=== PATIENT | female | born 2000 | race Two or more races ===

== ENCOUNTER → 2021-12-24 | Outpatient (CLI) | payer MEDICAID ==
[2021-12-24 12:20] LABS: Basophils # (auto) 0 10 ^3/uL (0-0.2); Basophils % (auto) 0.2 % (0.0-2.0); Eosinophils # (auto) 0.1 10 ^3/uL (0-0.8); Hematocrit 33.6 % (36.0-46.0); Hemoglobin 11.6 g/dL (12.2-16.2); Lymphocytes # (auto) 2.3 10 ^3/uL (0.4-5.4); Lymphocytes % (auto) 24.5 % (10.0-50.0); Mean Corpuscular Hemoglobin 30.6 pg (28.0-32.0); Mean Corpuscular Hgb Conc. 34.5 g/dL (32.0-36.0); Mean Corpuscular Volume 88.8 fL (80.0-100.0); Monocytes # (auto) 0.3 10 ^3/uL (0-1.3); Monocytes % (auto) 3.3 % (0.0-12.0); Neutrophils # (auto) 6.7 10 ^3/uL (1.6-8.6); Red Blood Cells 3.78 10^6/uL (4.0-5.20); Red Cell Distribution Width 13.4 % (11.8-14.3); White Blood Cell 9.4 10^3/uL (4.4-10.8)
[2021-12-25 08:06] LABS: RPR Non Reactive (Non Reactive)
== END | disposition home or self-care (01) ==
LOC: LAB 10:37
PROVIDERS: ATTEND Obstetrics & Gynecology
DX: Z34.00 Encounter for supervision of normal first pregnancy, unspecified trimester (principal); Z31.430 Encounter of female for testing for genetic disease carrier status for procreative management; Z36.0 Encounter for antenatal screening for chromosomal anomalies; N39.0 Urinary tract infection, site not specified; Z3A.00 Weeks of gestation of pregnancy not specified
CPT/HCPCS: 36415; 83036; 84112; 84702; 85025; 86592; 86703; 86762; 86850; 86900; 86901; 87340

== ENCOUNTER → 2021-12-25 | Outpatient (CLI) | payer MEDICAID | END | disposition home or self-care (01) | LOC: LAB 07:51 | PROVIDERS: ATTEND Obstetrics & Gynecology | DX: Z34.00 Encounter for supervision of normal first pregnancy, unspecified trimester (principal); Z3A.00 Weeks of gestation of pregnancy not specified | CPT/HCPCS: 82951 ==

== ENCOUNTER 2022-01-12 08:58 | Observation (INO) | payer MEDICAID ==
[~2022-01-12] VITALS: Ht 157.5 cm; Wt 99.3 kg
[2022-01-12] MEDS ORDERED: PREN-96 PO (09:27)
== END 2022-01-12 10:43 | disposition home or self-care (01) ==
LOC: LDRP 08:58
PROVIDERS: ADMIT Obstetrics & Gynecology; ATTEND Obstetrics & Gynecology
DX: O24.419 Gestational diabetes mellitus in pregnancy, unspecified control (principal); O99.323 Drug use complicating pregnancy, third trimester; F12.90 Cannabis use, unspecified, uncomplicated; Z3A.35 35 weeks gestation of pregnancy
CPT/HCPCS: 59025; 76818; 81002; 82962; G0378

== ENCOUNTER 2022-01-16 12:44 | Observation (INO) | payer MEDICAID ==
[~2022-01-16 12:44] MED LIST: PREN-96 PO
== END 2022-01-16 16:53 | disposition home or self-care (01) ==
LOC: LDRP 14:30 → UNDOADMOB 14:30 → LDRP 14:31 → UNDODISOB 16:53
PROVIDERS: ADMIT Obstetrics & Gynecology; ATTEND Obstetrics & Gynecology
DX: O24.419 Gestational diabetes mellitus in pregnancy, unspecified control (principal); O26.893 Other specified pregnancy related conditions, third trimester; N89.8 Other specified noninflammatory disorders of vagina; Z3A.36 36 weeks gestation of pregnancy
CPT/HCPCS: 59025; 76818; 81002; 82948; 82962; 94760; G0378

== ENCOUNTER 2022-01-21 08:08 | Observation (INO) | payer MEDICAID | END 2022-01-21 11:27 | disposition home or self-care (01) | LOC: LDRP 10:15 → UNDOADMOB 10:19 → UNDODISOB 11:27 | PROVIDERS: ADMIT Obstetrics & Gynecology Obstetrics; ATTEND Obstetrics & Gynecology Obstetrics | DX: O24.419 Gestational diabetes mellitus in pregnancy, unspecified control (principal); Z3A.37 37 weeks gestation of pregnancy | CPT/HCPCS: 59025; 76818; 81002; 82948; 82962; 94760; G0378 ==

== ENCOUNTER 2022-01-26 20:22 | Observation (INO) | payer MEDICAID ==
[~2022-01-26] VITALS: Ht 157.5 cm; Wt 100.2 kg
== END 2022-01-26 23:10 | disposition home or self-care (01) ==
LOC: LDRP 20:22
PROVIDERS: ADMIT Obstetrics & Gynecology Obstetrics; ATTEND Obstetrics & Gynecology Obstetrics
DX: O36.8130 Decreased fetal movements, third trimester, not applicable or unspecified (principal); Z3A.37 37 weeks gestation of pregnancy; Z87.891 Personal history of nicotine dependence
CPT/HCPCS: 59025; 76818; 81002; 82948; 82962; 94760; G0378

== ENCOUNTER 2022-01-28 08:48 | Observation (INO) | payer MEDICAID | END 2022-01-28 12:23 | disposition home or self-care (01) | LOC: LDRP 11:23 → UNDOADMOB 11:24 → UNDODISOB 12:23 | PROVIDERS: ADMIT Obstetrics & Gynecology Obstetrics; ATTEND Obstetrics & Gynecology Obstetrics | DX: O24.419 Gestational diabetes mellitus in pregnancy, unspecified control (principal); Z3A.38 38 weeks gestation of pregnancy; Z87.891 Personal history of nicotine dependence | CPT/HCPCS: 59025; 76818; 81002; 82948; 82962; 94760; G0378 ==

== ENCOUNTER 2022-02-04 08:57 | Observation (INO) | payer MEDICAID | END 2022-02-04 12:35 | disposition home or self-care (01) | LOC: LDRP 11:09 → UNDOADMOB 11:09 → LDRP 11:53 → UNDODISOB 12:35 | PROVIDERS: ADMIT Obstetrics & Gynecology Obstetrics; ATTEND Obstetrics & Gynecology Obstetrics | DX: O24.419 Gestational diabetes mellitus in pregnancy, unspecified control (principal); Z3A.39 39 weeks gestation of pregnancy; Z87.891 Personal history of nicotine dependence | CPT/HCPCS: 59025; 76818; 81002; 82948; 82962; 94760; G0378 ==

== ENCOUNTER 2022-02-09 05:25 | Inpatient (IN) | payer MEDICAID ==
[~2022-02-09] VITALS: Ht 157.5 cm; Wt 99.8 kg
[2022-02-09] MEDS ORDERED: NALBUPHINE HCL 10 MG/1ml INJECTION IM PRN (15:45)
[2022-02-09] MEDS ORDERED: WITCH HAZEL-GLYCERIN PAD TOP PRN (15:45)
[2022-02-09] MEDS ORDERED: NALBUPHINE HCL 10 MG/1ml INJECTION IV PRN (15:45)
[2022-02-09] MEDS ORDERED: PHISODERM TOP SOLN 240ML BTL TOP PRN (15:45)
[2022-02-09] MEDS ORDERED: PROMETHAZINE HCL 25 MG/ML 1ML IV PRN (15:45)
[2022-02-09] MEDS ORDERED: LACTATED RINGER'S 1,000 ML IV SCH (15:45)
[2022-02-09] MEDS ORDERED: LIDOCAINE 2%HCL (LOCAL ANESTH.) INJ 20ML MDV IJ PRN (15:45)
[2022-02-09] MEDS ORDERED: DERMOPLAST 60ML BOTTLE TOP PRN (15:45)
[2022-02-09 16:50] LABS: Basophils # (auto) 0 10 ^3/uL (0-0.2); Basophils % (auto) 0.2 % (0.0-2.0); Eosinophils # (auto) 0 10 ^3/uL (0-0.8); Eosinophils % (auto) 0.6 % (0.0-7.0); Hematocrit 32.2 % (36.0-46.0); Hemoglobin 11.1 g/dL (12.2-16.2); Lymphocytes # (auto) 2.2 10 ^3/uL (0.4-5.4); Lymphocytes % (auto) 27.9 % (10.0-50.0); Mean Corpuscular Hgb Conc. 34.7 g/dL (32.0-36.0); Mean Corpuscular Volume 89.6 fL (80.0-100.0); Monocytes # (auto) 0.4 10 ^3/uL (0-1.3); Monocytes % (auto) 5.6 % (0.0-12.0); Neutrophils # (auto) 5.3 10 ^3/uL (1.6-8.6); Neutrophils % (auto) 65.7 % (37.0-80.0); Nucleated Red Blood Cells % 0.1 %; Red Blood Cells 3.59 10^6/uL (4.0-5.20); Red Cell Distribution Width 13.9 % (11.8-14.3)
[2022-02-09 16:52] LABS: Urine Amorphous Crystal FEW /hpf (None Seen); Urine Bacteria NONE SEEN /hpf (None Seen); Urine Blood Negative /uL (Negative); Urine Specific Gravity 1.016 (1.001-1.035); Urine WBC 2 /hpf (0 - 5)
[2022-02-09 17:07] LABS: Albumin 2.2 g/dL (3.4-5.0); Amphetamine Screen, Urine NEGATIVE (NEGATIVE); Barbiturate Scree,Urine NEGATIVE (NEGATIVE); Benzodiazephine Screen, Urine NEGATIVE (NEGATIVE); Calcium 8.9 mg/dL (8.5-10.1); Cannabinoid Screen, Urine NEGATIVE (NEGATIVE); Cocaine Screen, Urine NEGATIVE (NEGATIVE); Opiate Scree,Urine NEGATIVE (NEGATIVE); Phencyclidine Screen, Urine NEGATIVE (NEGATIVE); Potassium 3.9 mmol/L (3.5-5.1)
[2022-02-09 17:11] LABS: Bilirubin, Total 0.2 mg/dL (0.2-1.0)
[2022-02-09 17:13] LABS: INR 0.87 (0.9-1.15); Partial Thromboplastin Time 25.9 sec (24.6-33.4)
[2022-02-09] MEDS: miSOPROStol 50 MCG per PRE-CUT 1/2 TAB PO PRN ×2 (19:13→23:46)
[2022-02-10] MEDS: miSOPROStol 50 MCG per PRE-CUT 1/2 TAB PO PRN (03:53)
[2022-02-13 05:06] LABS: RPR Non Reactive (Non Reactive)
== END 2022-02-10 10:47 | disposition home or self-care (01) | DRG 566 ==
LOC: LDRP 05:25
PROVIDERS: ADMIT Obstetrics & Gynecology; ATTEND Obstetrics & Gynecology
PROC: 3E0DXGC Introduction of Other Therapeutic Substance into Mouth and Pharynx, External Approach (ICD-10-PCS; principal; 2022-02-10)
DX: O61.9 Failed induction of labor, unspecified (principal); O41.03X0 Oligohydramnios, third trimester, not applicable or unspecified; O24.419 Gestational diabetes mellitus in pregnancy, unspecified control; Z20.822 Contact with and (suspected) exposure to COVID-19; E66.01 Morbid (severe) obesity due to excess calories; O99.213 Obesity complicating pregnancy, third trimester; Z3A.39 39 weeks gestation of pregnancy
CPT/HCPCS: 36415; 59025; 76815; 76818; 80053; 80307; 81001; 82948; 82962; 85025; 85610; 85730; 86592; 86850; 86900; 86901; 87426; 94760; 94762; 96360; 96361; G0378

== ENCOUNTER 2022-02-11 08:49 | Inpatient (IN) | payer MEDICAID ==
[~2022-02-11] VITALS: Ht 157.5 cm; Wt 99.8 kg
[2022-02-11] MEDS ORDERED: BUTORPHANOL TARTRATE 2 MG/1 ML VIAL IV PRN ×2 (09:30)
[2022-02-11] MEDS ORDERED: PROMETHAZINE HCL 25 MG/ML 1ML IV PRN (09:30)
[2022-02-11] MEDS ORDERED: PHISODERM TOP SOLN 240ML BTL TOP PRN (09:30)
[2022-02-11] MEDS ORDERED: DERMOPLAST 60ML BOTTLE TOP PRN (09:30)
[2022-02-11] MEDS ORDERED: LIDOCAINE 2%HCL (LOCAL ANESTH.) INJ 20ML MDV IJ PRN (09:30)
[2022-02-11] MEDS ORDERED: LACTATED RINGER'S 1,000 ML IV SCH (09:30)
[2022-02-11 10:26] LABS: INR 0.87 (0.9-1.15); Partial Thromboplastin Time 26.5 sec (24.6-33.4)
[2022-02-11 10:28] LABS: Basophils # (auto) 0.1 10 ^3/uL (0-0.2); Basophils % (auto) 0.4 % (0.0-2.0); Eosinophils # (auto) 0 10 ^3/uL (0-0.8); Eosinophils % (auto) 0.3 % (0.0-7.0); Hematocrit 34.3 % (36.0-46.0); Hemoglobin 11.6 g/dL (12.2-16.2); Lymphocytes # (auto) 2.4 10 ^3/uL (0.4-5.4); Lymphocytes % (auto) 16.9 % (10.0-50.0); Mean Corpuscular Hemoglobin 30.3 pg (28.0-32.0); Mean Corpuscular Hgb Conc. 33.9 g/dL (32.0-36.0); Mean Corpuscular Volume 89.5 fL (80.0-100.0); Monocytes # (auto) 0.8 10 ^3/uL (0-1.3); Monocytes % (auto) 5.9 % (0.0-12.0); Neutrophils # (auto) 10.9 10 ^3/uL (1.6-8.6); Neutrophils % (auto) 76.5 % (37.0-80.0); Red Blood Cells 3.83 10^6/uL (4.0-5.20); Red Cell Distribution Width 14.1 % (11.8-14.3); White Blood Cell 14.2 10^3/uL (4.4-10.8)
[2022-02-11 10:45] LABS: Albumin 2.4 g/dL (3.4-5.0); BUN/Creatinine Ratio 18.4; Calcium 8.6 mg/dL (8.5-10.1); Potassium 3.9 mmol/L (3.5-5.1)
[2022-02-11 10:48] LABS: Bilirubin, Total 0.4 mg/dL (0.2-1.0); Total Protein 6.5 g/dL (6.4-8.2)
[2022-02-11 10:51] LABS: Amphetamine Screen, Urine NEGATIVE (NEGATIVE); Barbiturate Scree,Urine NEGATIVE (NEGATIVE); Benzodiazephine Screen, Urine NEGATIVE (NEGATIVE); Cannabinoid Screen, Urine NEGATIVE (NEGATIVE); Cocaine Screen, Urine NEGATIVE (NEGATIVE); Opiate Scree,Urine NEGATIVE (NEGATIVE); Phencyclidine Screen, Urine NEGATIVE (NEGATIVE)
[2022-02-11 11:10] LABS: Alcohol, Urine < 3.0 mg/dL (0-10)
[2022-02-11 11:19] LABS: Urine Bacteria FEW /hpf (None Seen); Urine Blood 3+ /uL (Negative); Urine Specific Gravity 1.015 (1.001-1.035); Urine WBC 15 /hpf (0 - 5); Urine WBC Clumps PRESENT /hpf (None Seen)
[2022-02-11] MEDS ORDERED: TERBUTALINE SULFATE 1 MG/ML 1ML VIAL SC PRN (11:30)
[2022-02-11] MEDS ORDERED: LACT. RINGERS/OXYTOCIN 20UNITS 1,000 ML IV SCH (11:30)
[2022-02-11] MEDS ORDERED: LACT. RINGERS/OXYTOCIN 20UNITS 500 ML IV ONE ×5 (11:30→19:45)
[2022-02-11] MEDS ORDERED: LACTATED RINGER'S 1,000 ML IV ONE (11:45)
[2022-02-11] MEDS ORDERED: ePHEDrine SULFATE 50 MG/ML AMP IV ONE ×2 (11:45→12:30)
[2022-02-11] MEDS ORDERED: LIDOCAINE HCL 2 %PF INJ 10ML AMP IJ ONE ×4 (11:45→17:32)
[2022-02-11] MEDS ORDERED: NALOXONE HCL 0.4 MG/ML VIAL IV ONE ×2 (11:45→12:30)
[2022-02-11] MEDS ORDERED: ROPIVACAINE HCL 200 ML EPI SCH (11:45)
[2022-02-11] MEDS ORDERED: fentaNYL 400mCg/200ml W ROPIVA 200 ML EPI STA (12:16)
[2022-02-11] MEDS ORDERED: fentaNYL CITRATE 100 MCG/2 ML VL ONE ×2 (12:18→17:01)
[2022-02-11] MEDS: WITCH HAZEL-GLYCERIN PAD TOP PRN (13:18)
[2022-02-11] MEDS ORDERED: LIDOCAINE 1%HCL (LOCAL ANESTH) 10 ML MDV ONE (16:33)
[2022-02-11] MEDS ORDERED: LIDOCAINE 2%HCL (LOCAL ANESTH.) INJ 10ml MDV ONE (16:38)
[2022-02-11] MEDS ORDERED: fentaNYL CITRATE 100 MCG/2 ML VL IV STA (16:56)
[2022-02-11] MEDS ORDERED: LIDOCAINE HCL 2 %PF INJ 10ML AMP IJ STA (16:56)
[2022-02-11] MEDS ORDERED: diphenhdrAMINE HCL 50 MG/1 ML VL IV ONE (17:45)
[2022-02-11] MEDS ORDERED: METHYLERGONOVINE MALEATE 0.2 MG/ML AMP IM ONE ×2 (19:11→19:15)
[2022-02-11] MEDS ORDERED: miSOPROStol 100 mcg TAB ONE (19:11)
[2022-02-11] MEDS ORDERED: ONDANSETRON ODT 4 MG TAB PO PRN (19:15)
[2022-02-11] MEDS: ACETAMINOPHEN 325 MG TAB PO PRN (19:58)
[2022-02-11] MEDS ORDERED: ONDANSETRON HCL 4 MG/2 ML VIAL IV PRN (21:15)
[2022-02-11] MEDS: DOCUSATE SOD 100 MG CAP PO SCH (22:40)
[2022-02-11 23:00] VITALS: BP 94/55
[2022-02-12] MEDS ORDERED: IBUPROFEN 800 MG TAB PO SCH
[2022-02-12] MEDS ORDERED: IBUPROFEN 800 MG TAB PO PRN (02:00)
[2022-02-12 03:12] VITALS: BP 101/61
[2022-02-12 06:55] VITALS: BP 98/57
[2022-02-12 10:50] VITALS: BP 108/67
[2022-02-12] MEDS ORDERED: ROPIVACAINE HCL 200 ML EPI SCH (11:45)
[2022-02-12 15:17] VITALS: BP 112/73
[2022-02-12] MEDS: ACETAMINOPHEN 325 MG TAB PO PRN (16:09)
[2022-02-12 19:30] VITALS: BP 91/57
[2022-02-12] MEDS: DOCUSATE SOD 100 MG CAP PO SCH (22:04)
[2022-02-12 22:48] VITALS: BP 127/68
[2022-02-13 02:56] VITALS: BP 93/59
[2022-02-13 05:06] LABS: RPR Non Reactive (Non Reactive)
[2022-02-13 06:43] VITALS: BP 108/67
[2022-02-13] MEDS: WITCH HAZEL-GLYCERIN PAD TOP PRN (09:34)
== END 2022-02-13 10:25 | disposition home or self-care (01) | DRG 560 ==
LOC: LDRP 08:49 → OBSVTOIN 09:18 → LDRP 02-12 02:13
PROVIDERS: ADMIT Obstetrics & Gynecology; ATTEND Obstetrics & Gynecology
PROC: 10E0XZZ Delivery of Products of Conception, External Approach (ICD-10-PCS; principal; 2022-02-11)
PROC: 0KQM0ZZ Repair Perineum Muscle, Open Approach (ICD-10-PCS; 2022-02-11)
PROC: 0W8NXZZ Division of Female Perineum, External Approach (ICD-10-PCS; 2022-02-11)
PROC: 3E0R3BZ Introduction of Anesthetic Agent into Spinal Canal, Percutaneous Approach (ICD-10-PCS; 2022-02-11)
PROC: 00HU33Z Insertion of Infusion Device into Spinal Canal, Percutaneous Approach (ICD-10-PCS; 2022-02-11)
DX: O24.429 Gestational diabetes mellitus in childbirth, unspecified control (principal); Z37.0 Single live birth; O70.1 Second degree perineal laceration during delivery; Z20.822 Contact with and (suspected) exposure to COVID-19; Z3A.40 40 weeks gestation of pregnancy
CPT/HCPCS: 36415; 59025; 59409; 62282; 80053; 80307; 81001; 81002; 82962; 85025; 85610; 85730; 86592; 86850; 86900; 86901; 87426; 94760; 96360; 96365; 96366; 96372; G0378; J2001; J2590; Q0162